=== PATIENT | female | born 1985 | race Caucasian/White ===

== ENCOUNTER 2022-10-02 16:49 | Outpatient (REF) | payer OTHER, SELFPAY ==
[2022-10-02 17:32] LABS: Abs Immature Grans 0.03 10^3/uL (0.0-0.06); Absolute Basophil Count 0.03 10^3/uL (0.0-0.2); Absolute Lymphocyte Count 2.91 10^3/uL (1.2-3.4); Absolute Monocyte Count 0.66 10^3/uL (0.1-0.8); Basophils % 0.3; Eosinophils % 6.2; HCT 41.2 % (36.0-46.0); HGB 13.9 g/dL (11.2-15.7); Immature Grans % 0.3; Lymphocytes % 29.9; MCH 27.4 pg (27.0-33.0); MCHC 33.7 % (32.0-36.0); MCV 81 fL (80-95); Monocytes % 6.8; Neutrophils % 56.5; Platelet Count 264 10^3/uL (130-400); RBC 5.08 10^6/uL (3.93-5.22); RDW 12.5 % (11.7-14.6); RDW-SD 36.9 fL; WBC 9.73 10^3/uL (4.4-10.8)
[2022-10-02 18:00] LABS: ALT 20 U/L (14-59); AST 14 U/L (15-37); Albumin 4.3 g/dL (3.4-5.0); Alkaline Phosphatase 70 U/L (46-116); Anion Gap 10.9 mmol/L (3-11); BUN 9 mg/dL (7-18); Bilirubin, Total 0.7 mg/dL (0.2-1.0); CO2 24.1 mmol/L (21.0-32.0); CREATININE 0.7 mg/dL (0.55-1.02); Calcium 9.2 mg/dL (8.5-10.1); Chloride 104 mmol/L (98-107); Estimated GFR 112.75 (mL/min/1.73m2); Glucose 93 mg/dL (74-106); Lipase 22 U/L (16-77); Sodium 139 mmol/L (136-145); Total Protein 7.8 g/dL (6.4-8.2)
== END 2022-10-02 16:50 | disposition home or self-care (01) ==
LOC: LBN 16:49
PROVIDERS: Visit Provider Physician Assistant Medical
DX: R10.9 Unspecified abdominal pain (principal)
CPT/HCPCS: 80053; 83690; 85025

== ENCOUNTER 2022-10-04 10:08 | Outpatient (REF) | payer OTHER, SELFPAY ==
[2022-10-04 21:20] LABS: Campylobacter PCR Negative (Negative); Salmonella PCR Negative (Negative); Shiga Toxin PCR Negative (Negative); Shigella/Enteroinvasive Ecoli Negative (Negative)
== END 2022-10-04 10:09 | disposition home or self-care (01) ==
LOC: LBN 10:08
PROVIDERS: Visit Provider Physician Assistant Medical
DX: R10.9 Unspecified abdominal pain (principal)
CPT/HCPCS: 87329; 87493; 87505; 87177